=== PATIENT | female | born 1990 | race Hispanic/Latino ===

== ENCOUNTER 2023-03-29 08:51 | Outpatient (CLI) | payer OTHER, SELFPAY ==
[2023-03-29 20:46] LABS: Alanine Aminotransferase 26 U/L (6-35); Albumin Level 4.3 g/dL (3.5-5.1); Alkaline Phosphatase 84 U/L (38-126); Anion Gap 5 mmol/L (8-16); Aspartate Amino Transferase 78 U/L (14-36); Bilirubin,Total 0.5 mg/dL (0.2-1.3); Blood Urea Nitrogen 12 mg/dL (7-17); Calcium 8.9 mg/dL (8.4-10.2); Carbon Dioxide 34 mmol/L (22-30); Chloride 99 mmol/L (98-107); Cholesterol 193 mg/dL (0-200); Estimated Glomerular Filt Rate > 60; Glucose 111 mg/dL (65-110); HDL Direct 37 mg/dL; Sodium 138 mmol/L (137-145); Triglycerides 159 mg/dL (<150)
[2023-03-29 21:09] LABS: Creatinine Urine 123.2 mg/dL
[2023-03-29 21:10] LABS: MALB Creatinine Ratio 44.2 mg/g (0-30); Microalbumin Urine Random 54.5 mg/L (0-16.7)
[2023-03-29 22:02] LABS: LDL Cholesterol Direct 107 mg/dL
[2023-03-29 22:11] LABS: Vitamin D 25 Hydroxy 17.5 ng/mL
[2023-03-29 22:16] LABS: Hemoglobin A1C 7.8 % (<5.7)
== END 2023-03-29 08:52 | disposition home or self-care (01) ==
LOC: ANHBWCLAB 08:52
PROVIDERS: PCP Nurse Practitioner Adult Health; Visit Provider Nurse Practitioner Adult Health
DX: E11.9 Type 2 diabetes mellitus without complications (principal); E55.9 Vitamin D deficiency, unspecified
CPT/HCPCS: 36415; 80053; 80061; 82043; 82306; 83036

== ENCOUNTER 2023-06-28 08:02 | Outpatient (CLI) | payer OTHER, SELFPAY ==
[2023-06-28 19:00] LABS: Hematocrit 37.7 % (37.0-47.0); Mean Corpuscular HGB Conc 29.2 g/dl (32-36); Mean Corpuscular Hemoglobin 23.1 pg (26-34); Platelet Count Result 354 k/mm3 (150-375); Red Blood Count 4.77 M/mm3 (4.2-5.4); Red Cell Distribution Width 15.3 % (11.5-14.5); White Blood Count 13.3 K/mm3 (4.5-10.0)
[2023-06-28 19:53] LABS: Creatinine Urine 71.7 mg/dL
[2023-06-28 19:57] LABS: MALB Creatinine Ratio 21.2 mg/g (0-30); Microalbumin Urine Random 15.2 mg/L (0-16.7)
[2023-06-28 20:02] LABS: Alanine Aminotransferase 35 U/L (6-35); Albumin Level 4.1 g/dL (3.5-5.1); Alkaline Phosphatase 84 U/L (38-126); Anion Gap 7 mmol/L (8-16); Aspartate Amino Transferase 55 U/L (14-36); Bilirubin,Total 0.5 mg/dL (0.2-1.3); Blood Urea Nitrogen 12 mg/dL (7-17); Carbon Dioxide 31 mmol/L (22-30); Chloride 100 mmol/L (98-107); Cholesterol 196 mg/dL (0-200); Estimated Glomerular Filt Rate > 60; Glucose 137 mg/dL (65-110); HDL Direct 34 mg/dL; Potassium 4.4 mmol/L (3.4-5.0); Sodium 138 mmol/L (137-145); Triglycerides 115 mg/dL (<150)
[2023-06-28 20:13] LABS: LDL Cholesterol Direct 115 mg/dL
[2023-06-28 20:37] LABS: Vitamin D 25 Hydroxy 21.7 ng/mL
[2023-06-28 21:29] LABS: Hemoglobin A1C 7.1 % (<5.7)
== END 2023-06-28 08:03 | disposition home or self-care (01) ==
PROVIDERS: PCP Nurse Practitioner Adult Health; Visit Provider Nurse Practitioner Adult Health
DX: Z13.9 Encounter for screening, unspecified (principal); E11.9 Type 2 diabetes mellitus without complications; E55.9 Vitamin D deficiency, unspecified
CPT/HCPCS: 36415; 80053; 80061; 82043; 82306; 83036; 85027

== ENCOUNTER 2023-07-19 09:25 | Outpatient (CLI) | payer OTHER, SELFPAY ==
--- NOTE | ~2023-07-19 | XR_ITS ---
Right wrist Technique: PA and lateral views were obtained. Clinical History: Pain Findings: No acute fracture or dislocation is seen. Osseous alignment is anatomic. Joint spaces are p reserved. Soft tissues are unremarkable. Impression: Unremarkable right wrist radiographs. Reviewed, dictated and finalized at location M. Impression: Unremarkable right wrist radiographs.
--- NOTE | ~2023-07-19 | XR_ITS ---
Right Hand Technique: PA and lateral views were obtained. Clinical History: Pain Findings: No acute fracture or dislocation is seen. Osseous alignment is anatomic. Joint spaces are p reserved. Soft tissues are unremarkable. Impression: Unremarkable right hand. Reviewed, dictated and finalized at location M. Impression: Unremarkable right hand.
== END 2023-07-19 09:26 | disposition home or self-care (01) ==
LOC: ANHBWCIMG 09:26
PROVIDERS: PCP Nurse Practitioner Adult Health; Visit Provider Nurse Practitioner Adult Health
DX: M79.641 Pain in right hand (principal); M25.531 Pain in right wrist
CPT/HCPCS: 73100; 73120

== ENCOUNTER 2023-11-02 08:07 | Outpatient (CLI) | payer OTHER, SELFPAY ==
[2023-11-02 19:07] LABS: Hematocrit 40.4 % (37.0-47.0); Hemoglobin 11.5 g/dL (12.0-15.0); Mean Corpuscular HGB Conc 28.5 g/dl (32-36); Mean Corpuscular Hemoglobin 22.3 pg (26-34); Mean Corpuscular Volume 78.3 fl (80-100); Platelet Count Result 389 k/mm3 (150-375); Red Blood Count 5.16 M/mm3 (4.2-5.4); Red Cell Distribution Width 15.2 % (11.5-14.5); White Blood Count 13.2 K/mm3 (4.5-10.0)
[2023-11-02 19:33] LABS: Alanine Aminotransferase 23 U/L (6-35); Albumin Level 4.2 g/dL (3.5-5.1); Alkaline Phosphatase 97 U/L (38-126); Anion Gap 7 mmol/L (8-16); Aspartate Amino Transferase 32 U/L (14-36); Bilirubin,Total 0.5 mg/dL (0.2-1.3); Blood Urea Nitrogen 14 mg/dL (7-17); Calcium 9.3 mg/dL (8.4-10.2); Carbon Dioxide 31 mmol/L (22-30); Chloride 101 mmol/L (98-107); Cholesterol 201 mg/dL (0-200); Estimated Glomerular Filt Rate > 60; Glucose 132 mg/dL (65-110); HDL Direct 33 mg/dL; Potassium 4.1 mmol/L (3.4-5.0); Sodium 139 mmol/L (137-145); Triglycerides 122 mg/dL (<150)
[2023-11-02 19:44] LABS: LDL Cholesterol Direct 131 mg/dL
[2023-11-02 19:45] LABS: Vitamin D 25 Hydroxy 25.5 ng/mL
[2023-11-02 20:01] LABS: Thyroid Stimulating Hormone 0.832 uIU/mL (0.465-4.680)
[2023-11-02 20:03] LABS: Creatinine Urine 117.3 mg/dL
[2023-11-02 20:09] LABS: MALB Creatinine Ratio 34.9 mg/g (0-30); Microalbumin Urine Random 40.9 mg/L (0-16.7)
[2023-11-02 21:29] LABS: Hemoglobin A1C 7.3 % (<5.7)
== END 2023-11-02 08:08 | disposition home or self-care (01) ==
LOC: ANHBWCLAB 08:09
PROVIDERS: PCP Nurse Practitioner Adult Health; Visit Provider Nurse Practitioner Adult Health
DX: E11.9 Type 2 diabetes mellitus without complications (principal); E55.9 Vitamin D deficiency, unspecified; Z13.9 Encounter for screening, unspecified; Z01.84 Encounter for antibody response examination
CPT/HCPCS: 36415; 80053; 80061; 82043; 82306; 83036; 84443; 85027; 86735; 86765

== ENCOUNTER 2024-03-07 08:03 | Outpatient (CLI) | payer OTHER, SELFPAY ==
[2024-03-07 20:06] LABS: Basophils Absolute Auto 0.1 K/mm3 (0.0-0.1); Basophils Percent Auto 0.4 % (0.2-1.2); Eosinophils Absolute Auto 0.1 K/mm3 (0-0.3); Eosinophils Percent Auto 0.9 % (0-4.4); Hematocrit 39.1 % (37.0-47.0); Hemoglobin 11.3 g/dL (12.0-15.0); Immature Granulocyte Absolute 0.04 K/mm3 (0.00-0.031); Immature Granulocyte Percent A 0.3 % (0-0.5); Lymphocytes Absolute Auto 2.51 K/mm3 (0.9-3.2); Lymphocytes Percent Auto 19.9 % (18.3-44.2); Mean Corpuscular HGB Conc 28.9 g/dl (32-36); Mean Corpuscular Hemoglobin 22.7 pg (26-34); Mean Corpuscular Volume 78.7 fl (80-100); Mean Platelet Volume 12.3 fl (7.4-10.4); Monocytes Absolute Auto 0.6 K/mm3 (0.1-0.6); Monocytes Percent Auto 4.9 % (2.6-8.5); Neutrophils Absolute Auto 9.3 K/mm3 (1.3-6.7); Neutrophils Percent Auto 73.6 % (45.5-73.1); Platelet Count Result 331 k/mm3 (150-375); Red Blood Count 4.97 M/mm3 (4.2-5.4); Red Cell Distribution Width 16.1 % (11.5-14.5); White Blood Count 12.6 K/mm3 (4.5-10.0)
[2024-03-07 20:41] LABS: Anisocytosis 1+; Burr Cells 1+; Creatinine Urine 141.7 mg/dL; Platelet Estimate Adequate (Adequate); Schistocytes None Seen
[2024-03-07 20:44] LABS: Alanine Aminotransferase 19 U/L (6-35); Albumin Level 4.5 g/dL (3.5-5.1); Alkaline Phosphatase 81 U/L (38-126); Anion Gap 6 mmol/L (4-12); Aspartate Amino Transferase 40 U/L (14-36); Bilirubin,Total 0.5 mg/dL (0.2-1.3); Blood Urea Nitrogen 15 mg/dL (7-17); Calcium 9.2 mg/dL (8.4-10.2); Carbon Dioxide 27 mmol/L (22-30); Chloride 105 mmol/L (98-107); Cholesterol 186 mg/dL (0-200); Estimated Glomerular Filt Rate > 60; Glucose 145 mg/dL (65-110); HDL Direct 34 mg/dL; Potassium 4.3 mmol/L (3.4-5.0); Sodium 138 mmol/L (137-145); Triglycerides 130 mg/dL (<150)
[2024-03-07 20:46] LABS: MALB Creatinine Ratio 24.3 mg/g (0-30); Microalbumin Urine Random 34.4 mg/L (0-16.7)
[2024-03-07 20:49] LABS: Iron 38 ug/dL (37-170)
[2024-03-07 20:55] LABS: LDL Cholesterol Direct 116 mg/dL
[2024-03-07 21:17] LABS: Vitamin D 25 Hydroxy 17.7 ng/mL
[2024-03-07 21:48] LABS: Hemoglobin A1C 6.2 % (<5.7)
== END 2024-03-07 08:04 | disposition home or self-care (01) ==
LOC: ANHBWCLAB 08:05
PROVIDERS: PCP Nurse Practitioner Adult Health; Visit Provider Nurse Practitioner Adult Health
DX: D64.9 Anemia, unspecified (principal); E55.9 Vitamin D deficiency, unspecified; E11.9 Type 2 diabetes mellitus without complications
CPT/HCPCS: 36415; 80053; 80061; 82043; 82306; 82565; 82607; 82728; 83036; 83540; 85025

== ENCOUNTER 2024-03-20 14:10 | Outpatient (CLI) | payer OTHER, SELFPAY ==
[2024-03-20 16:40] LABS: IFOB Positive Control Positive; Immunochemical Fecal Occult Bl Negative (N)
== END 2024-03-20 14:11 | disposition home or self-care (01) ==
LOC: ANHLAB 14:12
PROVIDERS: PCP Nurse Practitioner Adult Health; Visit Provider Nurse Practitioner Adult Health
DX: D64.9 Anemia, unspecified (principal)
CPT/HCPCS: 82274

== ENCOUNTER 2024-03-21 10:52 | Outpatient (CLI) | payer OTHER, SELFPAY ==
[2024-03-21 11:21] LABS: Basophils Absolute Auto 0.1 K/mm3 (0.0-0.1); Basophils Percent Auto 0.5 % (0.2-1.2); Eosinophils Absolute Auto 0.1 K/mm3 (0-0.3); Hematocrit 36.9 % (37.0-47.0); Hemoglobin 11.4 g/dL (12.0-15.0); Immature Granulocyte Absolute 0.02 K/mm3 (0.00-0.031); Immature Granulocyte Percent A 0.2 % (0-0.5); Immature Reticulocyte Fraction 13.5 % (3.0-15.9); Lymphocytes Percent Auto 24.3 % (18.3-44.2); Mean Corpuscular HGB Conc 30.9 g/dl (32-36); Mean Corpuscular Hemoglobin 22.7 pg (26-34); Mean Corpuscular Volume 73.4 fl (80-100); Monocytes Absolute Auto 0.6 K/mm3 (0.1-0.6); Monocytes Percent Auto 5.7 % (2.6-8.5); Neutrophils Absolute Auto 7.3 K/mm3 (1.3-6.7); Neutrophils Percent Auto 68.3 % (45.5-73.1); Red Blood Count 5.03 M/mm3 (4.2-5.4); Reticulocyte Hemoglobin Conten 24.3 pg (28.2-36.6); Reticulocyte Percent 1.47 % (0.7-4.3); Reticulocytes Absolute 0.07 10^6/uL (0.02-0.10); White Blood Count 10.7 K/mm3 (4.5-10.0)
[2024-03-21 11:39] LABS: Immature Platelet Fraction Pct 11.2 % (0.9-11.2); Mean Platelet Volume 11.6 fl (7.4-10.4); Platelet Count Result 246 k/mm3 (150-375)
[2024-03-21 11:44] LABS: Platelet Estimate Adequate (Adequate); Schistocytes None Seen
[2024-03-21 11:45] LABS: Anisocytosis 1+; Hypochromasia 2+; Microcytosis 1+ (NORMAL); Ovalocytes 1+; Poikilocytosis 1+
[2024-03-21 12:25] LABS: Alanine Aminotransferase 18 U/L (6-35); Albumin Level 4.4 g/dL (3.5-5.1); Alkaline Phosphatase 80 U/L (38-126); Anion Gap 10 mmol/L (4-12); Aspartate Amino Transferase 22 U/L (14-36); Bilirubin,Total 0.6 mg/dL (0.2-1.3); Blood Urea Nitrogen 13 mg/dL (7-17); CRP 1.6 mg/dL (<1.0); Calcium 9.2 mg/dL (8.4-10.2); Carbon Dioxide 25 mmol/L (22-30); Chloride 105 mmol/L (98-107); Estimated Glomerular Filt Rate > 60; Glucose 156 mg/dL (65-110); Lactate Dehydrogenase 171 U/L (120-246); Sodium 140 mmol/L (137-145)
[2024-03-21 12:41] LABS: Erythrocyte Sedimentation Rate 12 mm/hr (0-20)
[2024-03-21 13:27] LABS: Folic Acid 7.5 ng/mL (2.76->20)
[2024-03-21 16:33] LABS: Iron 49 ug/dL (37-170)
[2024-03-21 16:50] LABS: Percent Iron Saturation 13 % (20-50)
[2024-03-26 09:28] LABS: Methylmalonic Acid 113 nmol/L (87-318)
[2024-03-28 17:18] LABS: Soluble Transferrin Receptor 2.52 mg/L (0.76-1.76)
== END 2024-03-21 10:53 | disposition home or self-care (01) ==
PROVIDERS: PCP Nurse Practitioner Adult Health; Visit Provider Nurse Practitioner Family
DX: D64.9 Anemia, unspecified (principal)
CPT/HCPCS: 36415; 80053; 82607; 82728; 82746; 83540; 83550; 83615; 83921; 84238; 85025; 85046; 85055; 85652; 86140

== ENCOUNTER 2024-06-12 07:51 | Outpatient (CLI) | payer OTHER, SELFPAY ==
[2024-06-12 21:25] LABS: Cholesterol 187 mg/dL (0-200); Estimated Glomerular Filt Rate > 60; HDL Direct 36 mg/dL; Triglycerides 112 mg/dL (<150)
[2024-06-12 21:36] LABS: LDL Cholesterol Direct 114 mg/dL
[2024-06-12 21:47] LABS: Microalbumin Urine Random 21.7 mg/L (0-16.7)
[2024-06-12 21:59] LABS: MALB Creatinine Ratio 19.7 mg/g (0-30)
[2024-06-12 22:20] LABS: Vitamin D 25 Hydroxy 31.5 ng/mL
[2024-06-12 22:36] LABS: Hemoglobin A1C 6.6 % (<5.7)
== END 2024-06-12 07:52 | disposition home or self-care (01) ==
LOC: ANHBWCLAB 07:54
PROVIDERS: PCP Nurse Practitioner Adult Health; Visit Provider Nurse Practitioner Adult Health
DX: E11.9 Type 2 diabetes mellitus without complications (principal); E55.9 Vitamin D deficiency, unspecified
CPT/HCPCS: 36415; 80061; 82043; 82306; 82565; 83036

== ENCOUNTER 2024-09-12 11:52 | Outpatient (CLI) | payer OTHER, SELFPAY ==
--- NOTE | ~2024-09-12 | XR_ITS ---
Right Shoulder Technique: AP and scapular Y views were obtained. Clinical History: Pain Findings: No fracture or dislocation is seen. Osseous alignment is anatomic. The glenohumeral and acr omioclavicular joint spaces are preserved. Soft tissues are unremarkable. Impression: Unremarkable right shoulder radiographs. Reviewed, dictated and finalized at [facility]. EY CHIEF Impression: Unremarkable right shoulder radiographs.
== END 2024-09-12 11:53 | disposition home or self-care (01) ==
LOC: ANHBWCIMG 11:54
PROVIDERS: PCP Nurse Practitioner Adult Health; Visit Provider Nurse Practitioner Adult Health
DX: M25.511 Pain in right shoulder (principal)
CPT/HCPCS: 73030

== ENCOUNTER 2024-12-11 07:35 | Outpatient (CLI) | payer OTHER, SELFPAY ==
--- OUTSIDE RECORDS SUMMARY | 2024-12-11 07:39 | XMS_ITS | Referral Summary ---
Author Organization [facility] Address [address] [place] [address] Care Team Providers Care Direct Support Professional Caregiver Name Role Phone Cary Peace MD Primary Care Provider Allergies No known active allergies Medications amoxicillin-cl avulanate (AUGMENTIN) 875-125 mg per tablet Take 1 tablet by mouth 2 (two) times a day 3 Active aspirin 81 mg enteric coated tablet daily 6 Active blood glucose diagnostic (OneTouch Ultra Test) strip 2 Active blood glucose diagnostic (True Metrix Glucose Test Strip) strip by in vitro route 6 Active blood glucose control, normal solution by in vitro route 6 Active docusate sodium (COLACE) 100 mg capsule Take 100 mg by mouth 2 (two) times a day 9 Active Trulicity 1.5 mg/0.5 mL pen injector INJECT 1.5MG SUBCUTANEOUSLY ONE TIME PER WEEK 3 Active ergocalciferol (VITAMIN D) 50,000 unit capsule ergocalciferol (vitamin D2) 1,250 mcg (50,000 unit) capsule 9 Active ergocalciferol (VITAMIN D) 50,000 unit capsule Take 50,000 Units by mouth once a week 3 Active folic acid (FOLVITE) 1 mg tablet Take 1 mg by mouth daily 6 Active glucagon 1 mg kit USE DIRECTED. 6 Active insulin glargine (BASAGLAR) 100 unit/mL (3 mL) pen for injection Basaglar NabeelPen U-100 Insulin 100 unit/mL (3 mL) subcutaneous Active insulin lispro (HumaLOG, ADMELOG) 100 unit/mL vial for injection Inject under the skin 3 Active insulin NPH (HumuLIN N, NovoLIN N) 100 unit/mL vial for injection Inject 54 Units under the skin 6 Active metFORMIN (GLUCOPHAGE) 1,000 mg tablet Take 1,000 mg by mouth 6 Active metFORMIN (GLUCOPHAGE) 500 mg tablet 2 times daily 6 Active pen needle, diabetic 32 gauge x 32 needle USE DIRECTED 6 Active pravastatin (PRAVACHOL) 20 mg tablet 2 Active raNITIdine (ZANTAC) 150 mg tablet Take 150 mg by mouth 2 (two) times a day 9 Active insulin syringe-needle U-100 1 mL 31 gauge x 1564 syringe Inject 5 times a day use as directed 7 Active benzonatate (TESSALON) 100 mg capsuleIndicat ions:Cough Take 1 capsule (100 mg total) by mouth 3 (three) times a day as needed for cough 21 capsule 3 Active predniSONE (DELTASONE) 10 mg tablet Take 5 tabs (50mg) daily for 2 days, then take 4 tabs (40mg) daily for 2 days. Continue to decrease by 1 tab (10mg) every 2 days until gone. 30 tablet 3 Active Active Problems Problem Noted Date Diagnosed Date Genetic anomalies of leukocytes 11/09/2021 Overview (12/29/2022): Last Assessment & Plan: Condition: stable Follow up in: three months Headache 11/09/2021 Overview (12/29/2022): Last Assessment & Plan: Condition: New, possibly related to medication changes Follow up in: if symptoms worsen or fail to improve with Primary Care Provider Morbid (severe) obesity due to excess calories 0 11/09/2021 Overview (12/29/2022): Last Assessment & Plan: Condition: stable Co-morbidities: N/A BMI > 40, Type 2 Diabetes and Hyperlipidemia Follow up in: three months Myopia, bilateral 11/09/2021 Overview (12/29/2022): Last Assessment & Plan: Condition: stable Follow up in: six months Regular astigmatism, bilateral 11/09/2021 Overview (12/29/2022): Last Assessment & Plan: Condition: stable Follow up in: six months Hyperlipidemia due to type 2 diabetes mellitus 1 11/09/2020 Overview (12/29/2022): Last Assessment & Plan: Condition: stable Discussed glucose control targets. Educated on: Lifestyle changes, Nutrition, Foot care and Medication compliance Follow up in: three months with PCP Essential (primary) hypertension 07/07/2020 Overview (12/29/2022): I10 - Cardiovascular - extra low Added by Interface Anemia affecting in third trimester Overview (12/29/2022): 11/07/18: Pt currently taking PO iron; last counts: 10.8/33.2/246 (11/03) Back pain affecting in second trimeste r 09/12/2018 Overview (12/29/2022): Plan: physical therapy, symptoms improved Chronic hypertension with superimposed preeclamp roland 06/05/2018 Overview (12/29/2022): 24 urine: unable to complete, random protein: 19mg (08/29); Protein/creatinine ratio: 168: 0.11 11/03/2018: CBC 10.8/33.2/246 CMP ALT 17, AST 11, total bili 0.3, creatinine 0.45 11/13/2018: H/H/P: 10.9/32.2/264 AST: 9 ALT: 11 creatinine: 0.45 bili: 0.3 24 hour urine : 2500ml urine collected, 325mg protein/24 hr 12/05/18 CBC 12.0/36.4/286 CMP ALT 16, AST 12, total bili 0.2, creatinine 0.4 Last Assessment & Plan: Stopped ASA on 12/02 Order for CBC/CMP today, recommended weekly until delivery Patient should continue to be seen weekly either by Corn Cutter Operator or MFM. Continue kick counts, twice daily Ongoing testing, to include weekly 10 point BPP and 2x week NST until delivery. Delivery initiation at 37 weeks for superimposed preeclampsia; close monitoring for severe features weekly encouraged. Strict pre eclampsia warnings Obesity affecting , antepartum 06/05/20 18 Overview (12/29/2022): Limit weight gain to 15 pound Type 2 diabetes mellitus affecting , an tepartum 06/05/2018 Overview (12/29/2022): Eye exam (performed shortly before ): unremarkable Baseline CMP, 24 urine: unable to complete, random protein: 19mg (08/29); Protein/creatinine ratio: 19/168: 0.11 Creatinine: 0.48, AST: 11, ALT: 10, bili: 0.3, TSH: 1.23 (08/29) Hemoglobin A1C: 5.7 (08/29), 5.7 (10/17) First-trimester anatomy survey: Unremarkable Second trimester anatomy survey: No malformations demonstrated echocardiogram: Unremarkable Last Assessment & Plan: Insulin: NPH 28 units in am and increase to 58 units at HS, rapid acting insulin 4units with breakfast and 8 unitsdinner, metformin 1000 milligrams b.i.d. Serial growth assessed 12/04, 3052g (69%), AC 94% Continue twice weekly nonstress tests Encouraged , discussed benefits to both mother and baby Vitamin D deficiency 05/21/2018 Overview (12/29/2022): Last Assessment & Plan: Condition: stable Follow up in: three months Surgical follow-up care 02/23/2017 06/08/2016 Immunizations Immunization Administration Dates Next Due Influenza, Trivalent, Preservative Free, Intramu scular 07/11/2013 Tdap 11/17/2016,06/06/2013 Social History Tobacco Use Types Packs/Day Years Used Date Smoking Tobacco: Never Comments Unknown Sex and Gender Information Value Date Recorded Sex Assigned at Not on file 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 Gender Identity Not on file Sexual Orientation Not on file Last Filed Vital Signs Vital Sign Reading Time Taken Comments Blood Pressure 126/80 12/29/2022 6:03 PM CDT Pulse 87 12/29/2022 6:03 PM CDT Temperature 36.9 C (98.5 F) 12/29/2022 6:03 PM CDT Respiratory Rate 20 12/29/2022 6:03 PM CDT Oxygen Saturation 98% 12/29/2022 6:03 PM CDT Inhaled Oxygen Concentration - - Weight 138.3 kg (305 lb) 12/29/2022 6:03 PM CDT Height 167.6 cm (5' 6 ) 12/29/2022 6:03 PM CDT Body Mass Index 49.23 12/29/2022 6:03 PM CDT Plan of Treatment Not on file Procedures Procedure Name Priority Date/Time Associated Diagnosis Comments HEMOGLOBIN A1C STAT 01/26/2017 7:14 PM CDT from Last 3 Months or Most Recently Relevant to Health Maintenance Results * Hemoglobin A1c (01/26/2017 7:14 PM CDT) Hgb A1C 5.7 4.0 - 6.0 % [facility] Estimated Average Glucose 117 mg/dL [facility] Comment: The ADA recommends reporting an estimated Average Glucose (eAG) with all Hemoglobin A1c results using the equation derived from a study of 507 normal and diabetic adults. Minority populations were underrepresented and children were not included. (Diabetes Care 31:7984-3183, 2008). The eAG is not equivalent to a fasting glucose. Blood specimen (specimen) 01/26/2017 7:14 PM CDT 01/26/2017 7:36 PM CDT Pavan Adams MD LAB BLOOD ORDERABLES Edited Result - Final [facility] Department [place] [address] from Last 3 Months or Most Recently Relevant to Health Maintenance Insurance [facility] [employer] Care Teams Direct Support Professional Caregiver Relationship Specialty [place] [address] [address] PCP - General 02/27/17
--- OUTSIDE RECORDS SUMMARY | 2024-12-11 07:39 | XMS_ITS | CONTINUITY OF CARE DOCUMENT ---
Author Name kerry payne Address Unknown Organization [facility] Address [address] [facility] [address] [place] [address] Phone [phone] Care Team Providers Care Dude Wrangler Name Role Phone Gonzalo Charles MD Unavailable [phone] INSURANCE PROVIDERS Payer name Policy type / Coverage type Saadia red green party [place] Medicaid [id number]
--- OUTSIDE RECORDS SUMMARY | 2024-12-11 07:39 | XMS_ITS | Clinical Summary ---
Author Organization [facility] Address [address] [place] [address] [place] [address] Care Team Providers Care Web Operations Specialist Name Role Phone Unavailable Primary Care Provider Unavailabl e Allergies No known active allergies Medications insulin glargine (Basaglar KwikPen U-100 Insulin) 100 unit/mL pen syringe Inject 20 Units by subcutaneous injection 2 times daily. Active ergocalciferol (VITAMIN D2) 50,000 unit capsule Take 50,000 Units by mouth every 7 days. Active tirzepatide (Mounjaro) 2.5 mg/0.5 mL Pen Injector Inject by subcutaneous injection every 7 days. Active Active Problems No known active problems Encounters Date Type Department Care Team Description 11/26/2024 External Device Data ST[facility] ABSTRACTION Provider, Abstract 11/05/2024 External Device Data ST[facility] ABSTRACTION Provider, Abstract 10/30/2024 External Device Data ST[facility] ABSTRACTION Provider, Abstract 10/29/2024 External Device Data ST[facility] ABSTRACTION Provider, Abstract from Last 3 Months Family History Medical History Relation Name Comments No Known Problems Brother 1 No Known Problems Brother 2 No Known Problems Child 1 No Known Problems Child 2 No Known Problems Child 3 No Known Problems Father Diabetes Mother Relation Name Status Comments Brother 1 Alive Brother 2 Alive Child 1 Alive Child 2 Alive Child 3 Alive Father Alive Mother Social History Tobacco Use Types Packs/Day Years Used Date Smoking Tobacco: Never Smokeless Tobacco: Never Alcohol Use Standard Drinks/Week Comments Never 0 (1 standard drink = 0.6 oz pur e alcohol) Comments Unknown Sex and Gender Information Value Date Recorded Sex Assigned at Not on file Legal Sex Female 3:48 PM CDT Gender Identity Not on file Sexual Orientation Not on file Last Filed Vital Signs Vital Sign Reading Time Taken Comments Blood Pressure 132/77 03/21/2024 10:14 AM CDT Pulse 86 03/21/2024 10:14 AM CDT Temperature 36.7 C (98 F) 03/21/2024 10:14 AM CDT Respiratory Rate 16 03/21/2024 10:14 AM CDT Oxygen Saturation 97% 03/21/2024 10:14 AM CDT Inhaled Oxygen Concentration - - Weight 134.7 kg (297 lb) 03/21/2024 10:14 AM CDT Height 167.6 cm (5' 6 ) 03/21/2024 10:14 AM CDT Body Mass Index 47.94 03/21/2024 10:14 AM CDT Plan of Treatment Upcoming Encounters Date Type Department Care Team (Late st Contact Info) Description 12/13/2024 12:15 PM KITCHEN HAND Office Visit [facility] Oncology and Hematology [facility] [address] [facility] [address] [place] [address] Dennis Jimenez MD [address] [facility] [address] [place] [address] Health Maintenance Due Date Last Done Comments DIABETES ANNUAL FOOT EXAM 2006 DIABETES ANNUAL RETINAL EXAM 2006 DIABETES MICROALBUMIN ANNUAL SCREEN 2006 LDL CHOLESTEROL ANNUAL 2006 HEPATITIS B VACCINES (1 of 3 - 19+ 3-dose series) 2007 DIABETES HBA1C Q 6 MONTHS 02/26/20192017, 01/26/2017 INFLUENZA VACCINE (#1) 2024 07/11/2013 Preventative Visit- Commercial 10/09/2024 07/28/2023, 07/19/2021 CERVICAL CANCER SCREENING 07/28/2026 07/28/2023 DTAP/TDAP/TD VACCINES (4 - T d or Tdap) 11/17/2026 11/17/2016, 10/09/2015, 06/06/2013 HPV VACCINES Aged Out No longer eligi ble based on patient's age to complete this topic Insurance [employer] [place]
--- OUTSIDE RECORDS SUMMARY | 2024-12-11 07:39 | XMS_ITS | Clinical Summary ---
Author Organization [facility] Address [address] [place] [address] Care Team Providers Care Teletypesetter Monitor Name Role Phone Cary Peace MD Primary [...] continue to be seen weekly either by Marine Plumber or MFM. 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 Gender Identity Not on file Sexual Orientation Not on file Obstetrics History Last Filed Vital Signs Vital Sign Reading [...] 12/29/2022 6:03 PM CDT Plan of Treatment Health Maintenance Due Date Last Done Comments Albumin Creatinine Ratio, Urine 1988 Cervical Cancer Screening 1988 Depression Screening 1988 Hepatitis C Screening 1988 eGFR 1988 Dilated Eye Exam 1988 Foot Exam 1988 Lipid Panel 1988 Varicella Vaccines (1 of 2 - 13+ 2-dose series) 2001 Hepatitis B Screening 2006 Regular Well Visit/Exam 18-64 2006 Pneumococcal vaccine <65 (1 of 2 - PCV) 2007 Hemoglobin A1C 07/28/2017 01/26/2017 Covid-19 Vaccine (4 - season) 2024 09/16/2021, 01/02/2021, 12/08/2020 Influenza Vaccine (#1) 2024 2, 09/07/2021, 07/07/2020, Additional history exists DTaP/Tdap/Td Vaccine (5 - Td or Tdap) 12/11/2028 12/11/2018, 11/17/2016, 10/09/2015, Additional history exists HPV Vaccines Aged Out No longer eligi ble based on patient's age to complete this topic Procedures Procedure Name Priority Date/Time Associated Diagnosis Comments HEMOGLOBIN A1C STAT 01/26/2017 7:14 PM CDT from Last 3 Months or Most Recently Relevant to Health Maintenance Results * Hemoglobin A1c (01/26/2017 7:14 PM CDT) Hgb A1C 5.7 4.0 - 6.0 % [facility] Estimated Average Glucose 117 mg/dL [facility] Comment: The ADA recommends reporting an estimated Average Glucose (eAG) with all Hemoglobin A1c results using the equation derived from a study of 507 normal and diabetic adults. Minority populations were underrepresented and children were not included. (Diabetes Care 31:5733-4465, 2008). The eAG is not equivalent to a fasting glucose. Blood specimen (specimen) 01/26/2017 7:14 PM CDT 01/26/2017 7:36 PM CDT us Pavan Adams MD LAB BLOOD ORDERABLES Edited Result - Final [facility] Department [place] [address] from Last 3 Months or Most Recently Relevant to Health Maintenance Insurance [facility] [employer] Care Teams Teletypesetter Monitor Relationship Specialty [place] [address] [address] PCP - General 02/27/17
--- OUTSIDE RECORDS SUMMARY | 2024-12-11 07:40 | XMS_ITS | Referral Summary ---
Author Organization [facility] Address [address] [facility] [place] [address] Care Team Providers Care Watch Case Polisher Name Role Phone Roxann Land APRN-LEESA Primary Care Provider + Source Comments [facility],non-owned Affiliates and Associated Physician Practices is amultiple site organization consisting of ambulatory clinics and hospital sitesin [place], [place], [place] and [place]. This disclosure is being madepursuant to the Care Everywhere program and may not contain all information available regarding this patient. Last updated 18.[facility] Allergies No known active allergies Medications * Be aware that medications may not be up to date on this document. Alwaysverify current medications with the patient. Medication Sig Dispensed Refills Start Date End Date Status Vit-Fe Fumarate-FA ( VITAMIN) 27-0.8 MGIndications:Pre gnancy Take 1 tablet by mouth Reasons: Active folic acid (FOLVITE) 1 MG tablet Take 1 mg by mouth once daily Active insulin NPH (HUMULIN N; NOVOLIN N) vial Inject 54 Units subcutaneously 28 units in am and 54 units at HS Active insulin lispro (HUMALOG) 100 UNIT/ML vial 4 units with breakfast and 8 units with dinner Pt taking amdelog Active metFORMIN (GLUCOPHAGE) 1000 MG tablet Take 1,000 mg by mouth 2 times daily with morning and evening meal Active docusate sodium (COLACE) 100 MG capsule Take 1 capsule by mouth 2 times daily 60 capsule 2 11/07/2018 Active raNITIdine (ZANTAC) 150 MG tablet Take 1 tablet by mouth 2 times daily 60 tablet 1 11/07/2018 Active Additional Information Patient not taking.Reported on 12/05/2018 Active Problems Problem Noted Date Diagnosed Date Anemia affecting in third trimester Overview (11/07/2018): 11/07/18: Pt currently taking PO iron; last counts: 10.8/33.2/246 (11/03) Back pain affecting in second trimeste r 09/12/2018 Overview (11/07/2018): Plan: physical therapy, symptoms improved History of section 08/22/2018 Overview (08/22/2018): Plans repeat section with BTL with Rubber Compounder Mixer, attempted in last and unsuccessful Type 2 diabetes mellitus affecting , an tepartum 06/05/2018 Overview (11/14/2018): Eye exam (performed shortly before ): unremarkable Baseline CMP, 24 urine: unable to complete, random protein: 19mg (08/29); Protein/creatinine ratio: 19/168: 0.11 Creatinine: 0.48, AST: 11, ALT: 10, bili: 0.3, TSH: 1.23 (08/29) Hemoglobin A1C: 5.7 (08/29), 5.7 (10/17) First-trimester anatomy survey: Unremarkable Second trimester anatomy survey: No malformations demonstrated echocardiogram: Unremarkable Assessment & Plan (12/05/2018 2:48 PM DERRICK HELPER): Insulin: NPH 28 units in am and increase to 58 units at HS, rapid acting insulin 4units with breakfast and 8 unitsdinner, metformin 1000 milligrams b.i.d. Serial growth assessed 12/04, 3052g (69%), AC 94% Continue twice weekly nonstress tests Encouraged , discussed benefits to both mother and baby Assessment & Plan (11/14/2018 8:02 PM DERRICK HELPER): Plan: Insulin: NPH b.i.d., rapid acting insulin with breakfast and dinner, metformin 1000 milligrams b.i.d. Serial growth, every 4 weeks Twice weekly nonstress test and weekly BPP until delivery Supervision of high-risk of yas keen igravida 06/05/2018 Overview (09/05/2018): 08/29/18: H/H/P: 10.9/32.6/295, MCV: 79.1 Obesity affecting , antepartum 06/05/20 18 Overview (06/06/2018): Limit weight gain to 15 pound Chronic hypertension with superimposed preeclamp roland 06/05/2018 Overview (12/07/2018): 24 urine: unable to complete, random protein: 19mg (08/29); Protein/creatinine ratio: 19/168: 0.11 11/03/2018: CBC 10.8/33.2/246 CMP ALT 17, AST 11, total bili 0.3, creatinine 0.45 11/13/2018: H/H/P: 10.9/32.2/264 AST: 9 ALT: 11 creatinine: 0.45 bili: 0.3 24 hour urine : 2500ml urine collected, 325mg protein/24 hr 12/05/18 CBC 12.0/36.4/286 CMP ALT 16, AST 12, total bili 0.2, creatinine 0.4 Assessment & Plan (12/05/2018 3:07 PM DERRICK HELPER): Stopped ASA on 12/02 Order for CBC/CMP today, recommended weekly until delivery Patient should continue to be seen weekly either by Rubber Compounder Mixer or MFM. Continue kick counts, twice daily Ongoing testing, to include weekly 10 point BPP and 2x week NST until delivery. Delivery initiation at 37 weeks for superimposed preeclampsia; close monitoring for severe features weekly encouraged. Strict pre eclampsia warnings Assessment & Plan (11/14/2018 8:01 PM DERRICK HELPER): Indicated by blood pressure at primary OB's office of 151/84 on 11/01 and 147/83 on 10/11; blood pressure in our office on 143/87 on 11/07 with presence of headache. Preeclampsia labs drawn 11/13, 24 hour urine elevated at 325mg of protein, compared to a random protein/creatinine at 22 weeks of 0.11. No severe features this time. Plan: Discontinue aspirin at 34 weeks Delivery initiation in the 37th week Weekly CBC/CMP Close monitoring for severe features Would benefit from and weight reduction Assessment & Plan (10/17/2018 4:46 PM DERRICK HELPER): Twice weekly nonstress tests starting at 32 weeks with weekly 10 point BPP Assessment & Plan (08/22/2018 10:03 AM DERRICK HELPER): Stopped methyldopa, blood pressures in the 120s/70s as of 08/22 Resolved Problems Problem Noted Date Diagnosed Date Resolved Date Mild pre-eclampsia in third trimester 11/14/2018 11/14/2018 Social History Tobacco Use Types Packs/Day Years Used Date Smoking Tobacco: Never Smokeless Tobacco: Never Alcohol Use Standard Drinks/Week Comments No 0 (1 standard drink = 0.6 oz pur e alcohol) Sex and Gender Information Value Date Recorded Sex Assigned at Female 03/09/2022 7:18 AM CDT Gender Identity Female 03/09/2022 7:18 AM CDT Sexual Orientation Straight 03/09/2022 7: 18 AM CDT Last Filed Vital Signs Vital Sign Reading Time Taken Comments Blood Pressure 140/82 12/05/2018 1:32 PM DERRICK HELPER Pulse 104 12/05/2018 1:32 PM DERRICK HELPER Temperature 36.9 C (98.4 F) 01/30/2018 11:36 AM CDT Respiratory Rate 16 01/30/2018 11:3 6 AM CDT Oxygen Saturation 99% 11/07/2018 10: 06 AM DERRICK HELPER Inhaled Oxygen Concentration - - Weight 142.7 kg (314 lb 9.6 oz) 12/05/2018 1:32 PM DERRICK HELPER Height 167.6 cm (5' 6 ) 08/22/2018 8:41 AM DERRICK HELPER Body Mass Index 50.78 08/22/2018 8:41 AM DERRICK HELPER Plan of Treatment Not on file Care Teams Watch Case Polisher Relationship Specialty Start Date End Date Roxann Land APRN-LEESA [address] [address] PCP - General Nurse Practitioner 06/06/18
--- OUTSIDE RECORDS SUMMARY | 2024-12-11 07:40 | XMS_ITS | Patient Health Summary ---
Author Organization [facility] Address [address] [place] [address] Care Team Providers Care Technical Healthcare Consultant Name Role Phone Roxann Land Primary Care Provider + Note from [facility],non-owned Affiliates and Associated Physician Practices is amultiple site organization consisting of ambulatory clinics and hospital sitesin [place], [place], [place] and [place]. This disclosure is being madepursuant to the Care Everywhere program and may not contain all information available regarding this patient. Last updated 18.[facility] Allergies No known active allergies Medications * Be aware that medications may not be up to date on this document. Alwaysverify current medications with the patient. * Vit-Fe Fumarate-FA ( VITAMIN) 27-0.8 MG Take 1 tablet by mouth Reasons: * folic acid (FOLVITE) 1 MG tablet Take 1 mg by mouth once daily * insulin NPH (HUMULIN N; NOVOLIN N) vial Inject 54 Units subcutaneously 28 units in am and 54 units at HS * insulin lispro (HUMALOG) 100 UNIT/ML vial 4 units with breakfast and 8 units with dinner Pt taking amdelog * metFORMIN (GLUCOPHAGE) 1000 MG tablet Take 1,000 mg by mouth 2 times daily with morning and evening meal * docusate sodium (COLACE) 100 MG capsule(Started 11/07/2018) Take 1 capsule by mouth 2 times daily 2 refills remaining * raNITIdine (ZANTAC) 150 MG tablet(Started 11/07/2018) Take 1 tablet by mouth 2 times daily 1 refill remaining Active Problems Problem Noted Date Diagnosed Date Anemia affecting in third trimester Back pain affecting in second trimeste r 09/12/2018 History of section 08/22/2018 Type 2 diabetes mellitus affecting , an tepartum 06/05/2018 Supervision of high-risk of young mulwil turkavida 06/05/2018 Obesity affecting , antepartum 06/05/20 18 Chronic hypertension with superimposed preeclamp roland 06/05/2018 Resolved Problems Problem Noted Date Diagnosed Date [...] Comments Blood Pressure 140/82 12/05/2018 1:32 PM ROLL TUBE SETTER Pulse 104 12/05/2018 1:32 PM ROLL TUBE SETTER Temperature 36.9 C (98.4 F) 01/30/2018 11:36 AM CDT Respiratory Rate 16 01/30/2018 11:3 6 AM CDT Oxygen Saturation 99% 11/07/2018 10: 06 AM ROLL TUBE SETTER Inhaled Oxygen Concentration - - Weight 142.7 kg (314 lb 9.6 oz) 12/05/2018 1:32 PM ROLL TUBE SETTER Height 167.6 cm (5' 6 ) 08/22/2018 8:41 AM ROLL TUBE SETTER Body Mass Index 50.78 08/22/2018 8:41 AM ROLL TUBE SETTER Procedures * BIOPHYSICAL PROFILE W NST(Performed 12/04/2018) Performed for Type 2 diabetes mellitus affecting , antepartum (HCC), Supervision of high-risk of young multigravida (HCC), Obesity affecting , antepartum (HCC), Chronic hypertension during , antepartum (HCC), History of section * BIOPHYSICAL PROFILE W NST(Performed 11/14/2018) Performed for Type 2 diabetes mellitus affecting , antepartum (HCC), Supervision of high-risk of young multigravida (HCC), Obesity affecting , antepartum (HCC), Chronic hypertension during , antepartum (HCC), History of section * PROTEIN CREATININE RATIO URINE TIMED PNL(Performed 11/13/2018) * CBC W/O DIFFERENTIAL(Performed 11/13/2018) * COMPREHENSIVE METABOLIC PANEL(Performed 11/13/2018) * CREATININE CLEARANCE URINE TIMED + BLOOD(Performed 11/13/2018) * BIOPHYSICAL PROFILE W NST(Performed 11/07/2018) Performed for Type 2 diabetes mellitus affecting , antepartum (HCC), Supervision of high-risk of young multigravida (HCC), Obesity affecting , antepartum (HCC), Chronic hypertension during , antepartum (HCC), History of section * SONOGRAM - COMPLETE(Performed 10/17/2018) Performed for Type 2 diabetes mellitus affecting , antepartum (HCC), Supervision of high-risk of young multigravida (HCC), Obesity affecting , antepartum (HCC), Chronic hypertension during , antepartum (HCC), History of section * ECHO CONSULT - (Performed 09/19/2018) Performed for Type 2 diabetes mellitus affecting , antepartum (HCC) * PROTEIN CREATININE RATIO URINE RANDOM PNL(Performed 08/29/2018) * HEMOGLOBIN A1C(Performed 08/29/2018) * TSH REFLEX FREE T4(Performed 08/29/2018) * CBC W AUTO DIFFERENTIAL(Performed 08/29/2018) * COMPREHENSIVE METABOLIC PANEL(Performed 08/29/2018) * SONOGRAM - COMPLETE(Performed 08/22/2018) Performed for Type 2 diabetes mellitus affecting , antepartum (HCC), Supervision of high-risk of young multigravida (HCC), Obesity affecting , antepartum (HCC), Chronic hypertension during , antepartum (HCC) * SONOGRAM - COMPLETE(Performed 07/25/2018) Performed for Encounter for anatomic survey (HCC), Encounter for ultrasound to assess interval growth of fetus (HCC), Type 2 diabetes mellitus affecting , antepartum (HCC), Supervisionof high-risk of young multigravida (HCC), Chronic hypertension during , antepartum (HCC) * SONOGRAM - COMPLETE(Performed 06/29/2018) Performed for Supervision of high-risk of young multigravida (HCC), Type 2 diabetes mellitus affecting , antepartum (HCC), Obesity affecting , antepartum (HCC), Chronic hypertension during , antepartum (HCC) * SONOGRAM - COMPLETE(Performed 06/06/2018) Performed for Type 2 diabetes mellitus affecting , antepartum (HCC), Supervision of high-risk of young multigravida (HCC), Obesity affecting , antepartum (HCC), Chronic hypertension during , antepartum (HCC) * STREP A SCREEN - POINT OF CARE (AMB) STL(Performed 01/30/2018) Performed for Acute streptococcal pharyngitis * STREP A SCREEN - POINT OF CARE (AMB) STL(Performed 12/30/2017) Performed for Acute streptococcal pharyngitis Results * BIOPHYSICAL PROFILE W NST (12/04/2018 1:29 PM ROLL TUBE SETTER) Only the most recent of3 resultswithin the time period is included. Anatomical Region Laterality Modality Other 12/04/2018 1:29 PM ROLL TUBE SETTER Narrative 12/04/2018 3:23 PM ROLL TUBE SETTER [facility] PHONE: FAX: Pat. Name: NIDIA VIEIRA Paulette. No: [id number] Study Date: 12/04/2018 1:29pm , Age: 08 1990, 28 Pregnancies: 3, Para 2 Height: 66 in Weight: 356 lb LMP: 03/25/2018 GA by LMP: 36w2d GA by Base: 36w2d GERALD: 12/30/2018 GA by US: 35w6d GERALD: 01/02/2019 GA Selected: 36w2d (From [facility]) GERALD: 12/30/2018 Referring MD: Iggy Tadeo MD Senior Caregiver: Jacqueline Calderón RDMS CPT4: 62422,43133 BMI: 57.45 Hist/Ind: Hx of 1st child with Anecephaly (ft delivery) Hx of C-Sect x 2 Diabetes mellitus, pre-existing Hypertension Morbid Obesity Growth COMPLETED Anatomic Screen MEASUREMENTS & AGE GROWTH EVALUATION Measurement GA Range Srce %for GA Ratios ----- ---- ------- BPD 8.3 cm 33w2d (38f5o-08q7u) Hadl BPD 2% FL/BPD 0.86 (0.71 - 0.87) HC 32.0 cm 36w1d (01s8a-43k4l) Hadl HC 19% FL/AC 0.21 (0.20 - 0.24) AC 34.1 cm 38w0d (20d6l-25j6z) Hadl AC 94% HC/AC 0.94 (0.92 - 1.11) FL 7.1 cm 36w3d (10a5a-37g7a) Hadl FL 50% CI 0.70 (0.70 - 0.86) HL 6.0 cm 34w4d (18b8n-74w8h) Thomas HL 22% GA for sonogram 35w6d (38k7u-87p2b) Weight Estimate: based on (BPD,HC,AC,FL) Hadlock Weight: 3052 gm (2606-3498gm) Had : 6lbs, 11oz Normal: 2868 gm (2151-3585gm) Had Wt% 69% for 36w2d Heart Rate: 130 bpm Amniotic Fluid Index: 18.4cm (07.6-24.8) Q1: 4.2cm Q2: 4.8cm Q3: 5.1cm Q4: 4.3cm Biophysical Profile: 07/18 Breathin Tone: 2 NST: 2 Movement: 2 AFV: 2 EVAL, PLACENTA Presentation: cephalic Placenta: anterior Heart Rate: 130 bpm Amniotic Fluid Volume: normal CLINICAL SUMMARY Study Number: 7 A single fetus is identified in cephalic presentation. The measurements today are consistent with appropriate growth compared to previous study. The GERALD selected is based on a prior ultrasound examination. The amniotic fluid volume is normal. The placenta is anterior. No major malformations are seen within the limitations of ultrasound examination. The patient was advised that ultrasound does not allow detection of all structural or chromosomal abnormalities. TESTING: The Biophysical profile score is 10/10. The NST is reactive without decelerations. Intermittently difficulty monitoring FHR, however, overall reassuring FHR tracing IMPRESSION: 1. Single, live, IUP at 36w2d 2. Appropriate size 3. normal amniotic fluid volume 4. anterior placenta 5. Reassuring testing 6. Examination significantly limited by maternal body habitus, positioning, and advanced gestationala ge RECOMMEND: Continue testing with weekly NSTs/BPPs. Assess growth every 3-4 weeks on ultrasound. Thank you for allowing us the opportunity to care for your patient. Rodney Jimenez MD <Electronic Signature> 12/04/2018 03:23pm R Lambert Tadeo MD [facility] ORDERABLES * (ABNORMAL) PROTEIN CREATININE RATIO URINE TIMED PNL (11/13/2018 1:17 PM ROLL TUBE SETTER) Pathologist [facility] Creatinine 24 Hour Urine 2.35(H) 0.50 - 2.15 g/24 h [facility] Protein 24 Hour Urine 138(H) < OR = 114 mg/g creat [facility] Protein 24 Hour Urine 325(H) <150 mg/24 h [facility] Comment: TOTAL URINE VOLUME: 2500/24 Test Performed at: [facility] [id number] [place] [phone] DEON COONEY DO,MPH 11/13/2018 1:17 PM ROLL TUBE SETTER 11/13/2018 1:19 PM ROLL TUBE SETTER Meron Geovany [facility] LAB - URINE MICHAEL BUD ORDERABLES Performing Organization Address [facility] Co de Phone Number [facility] [address] [place] [address] * (ABNORMAL) CBC W/O DIFFERENTIAL (11/13/2018 1:17 PM ROLL TUBE SETTER) Pathologist [facility] White Blood Cell Count 10.9(H) 3.8 - 10.8 Thousand/u L [facility] RBC 4.17 3.80 - 5.10 Million/uL [facility] Hemoglobin 10.9(L) 11.7 - 15.5 g/dL [facility] Hematocrit 32.2(L) 35.0 - 45.0 % [facility] MCV 77.2(L) 80.0 - 100.0 fL [facility] MCH 26.1(L) 27.0 - 33.0 pg [facility] MCHC 33.9 32.0 - 36.0 g/dL [facility] RDW 14.1 11.0 - 15.0 % [facility] Platelet Count 264 140 - 400 Thousand/u L [facility] MPV 13.0(H) 7.5 - 12.5 fL [facility] Comment: Test Performed at: [facility] [address] [place] [address] DEON COONEY DO,MPH 11/13/2018 1:17 PM ROLL TUBE SETTER 11/13/2018 1:19 PM ROLL TUBE SETTER Meron Geovany [facility] - HEMAT[facility] Y ORDERABLES Performing Organization Address [facility] Co de Phone Number [facility] [address] [place] [address] * (ABNORMAL) COMPREHENSIVE METABOLIC PANEL (11/13/2018 1:17 PM ROLL TUBE SETTER) Only the most recent of2 resultswithin the time period is included. Pathologist [facility] Glucose 161(H) 65 - 99 mg/dL [facility] Comment: Fasting reference interval For someone without known diabetes, a glucose value >125 mg/dL indicates that they may have diabetes and this should be confirmed with a follow-up test. BUN 7 7 - 25 mg/dL [facility] Creatinine 0.45(L) 0.50 - 1.10 mg/dL [facility] eGFR by MDRD 134 > OR = 60 mL/min/1.7 3m2 [facility] eGFR by MDRD 156 > OR = 60 mL/min/1.7 3m2 [facility] BUN/Creatinine Ratio 16 6 - 22 (calc) [facility] Sodium 139 135 - 146 mmol/L [facility] Potassium 3.8 3.5 - 5.3 mmol/L [facility] Chloride 104 98 - 110 mmol/L [facility] CO2 26 20 - 32 mmol/L [facility] Calcium 8.9 8.6 - 10.2 mg/dL [facility] Protein Total 6.4 6.1 - 8.1 g/dL [facility] Albumin 3.5(L) 3.6 - 5.1 g/dL [facility] Globulin Total 2.9 1.9 - 3.7 g/dL (calc) [facility] Albumin/Globulin Ratio 1.2 1.0 - 2.5 (calc) [facility] Bilirubin Total 0.3 0.2 - 1.2 mg/dL [facility] Alkaline Phosphatase 132(H) 33 - 115 U/L [facility] AST 9(L) 10 - 30 U/L [facility] ALT 11 6 - 29 U/L [facility] Comment: Test Performed at: [facility] [address] [place] [address] DEON COONEY DO,MPH 11/13/2018 1:17 PM ROLL TUBE SETTER 11/13/2018 1:19 PM ROLL TUBE SETTER Meron Armenta [employer] MACHINE SET UP OPERATOR-MEAT PROCESSING CENTER MANAGER LAB - CHEMISTRY ORDERABLES [facility] [address] [place] [address] * (ABNORMAL) CREATININE CLEARANCE URINE TIMED + BLOOD (11/13/2018 1:17 PM ROLL TUBE SETTER) Creatinine 0.45(L) 0.50 - 1.10 mg/dL [facility] eGFR by MDRD 134 > OR = 60 mL/min/1.7 3m2 [facility] eGFR by MDRD 156 > OR = 60 mL/min/1.7 3m2 [facility] Creatinine 24 Hour Urine 2.35(H) 0.50 - 2.15 g/24 h [facility] Body Surface Area 2.42 [facility] Creatinine Clearance 259(H) 75 - 115 mL/min [facility] Height Feet 5 ft [facility] Height Inches 6 in [facility] Weight Lbs 312 [facility] Comment: Test Performed at: [facility] [address] [place] [address] DEON COONEY DO,MPH 11/13/2018 1:17 PM ROLL TUBE SETTER 11/13/2018 1:19 PM ROLL TUBE SETTER Meron Armenta [employer] MACHINE SET UP OPERATOR-MEAT PROCESSING CENTER MANAGER LAB - URINE MICHAEL BUD ORDERABLES [facility] [address] [place] [address] * SONOGRAM - COMPLETE (10/17/2018 8:27 AM ROLL TUBE SETTER) Only the most recent of5 resultswithin the time period is included. Anatomical Region Laterality Modality Other 10/17/2018 8:27 AM ROLL TUBE SETTER Narrative 10/17/2018 12:25 PM ROLL TUBE SETTER [facility] PHONE: FAX: Pat. Name: NIDIA VIEIRA Pat. No: [id number] Study Date: 10/17/2018 8:27am , Age: 08 1990, 28 Pregnancies: 3, Para 2 Height: 66 in Weight: 356 lb LMP: 03/25/2018 GA by LMP: 29w3d GA by Base: 29w3d GERALD: 12/30/2018 GA by US: 29w0d GERALD: 01/02/2019 GA Selected: 29w3d (From [facility]) GERALD: 12/30/2018 Referring MD: Iggy Tadeo MD Senior Caregiver: Betsy Killian, ISIAH, RDCS CPT4: 82489 BMI: 57.45 Hist/Ind: Hx of 1st child with Anecephaly (ft delivery) Hx of C-Sect x 2 Diabetes mellitus, pre-existing Hypertension Morbid Obesity Growth COMPLETED Anatomic Screen MEASUREMENTS & AGE GROWTH EVALUATION Measurement GA Range Srce %for GA Ratios ----- ---- ------- BPD 7.0 cm 28w0d (91s9e-32q2s) Hadl BPD 7% FL/BPD 0.76 (0.71 - 0.87) HC 27.7 cm 30w2d (08u0k-51b1e) Hadl HC 42% FL/AC 0.20 (0.20 - 0.24* AC 26.4 cm 30w4d (82y1u-23r5w) Hadl AC 77% HC/AC 1.05 (0.98 - 1.17) FL 5.3 cm 28w1d (74n6z-98l7q) Hadl FL 8% CI 0.68 (0.70 - 0.86* GA for sonogram 29w0d (93o8o-64f1h) Weight Estimate: based on (HC,AC,FL) Hadlock Weight: 1442 gm (1229-1656gm) Had : 3lbs, 2oz Normal: 1451 gm (1088-1814gm) Had Wt% 49% for 29w3d Heart Rate: 138 bpm Amniotic Fluid Index: 18.2cm (09.1-23.2) Q1: 2.6cm Q2: 9.2cm Q3: 3.3cm Q4: 3.0cm EVAL, PLACENTA Presentation: cephalic Placenta: anterior Heart Rate: 138 bpm Amniotic Fluid Volume: normal Anatomy!Normal!Abnormal!Suboptimal!Comments Cranium ! x ! ! ! Stomach ! x ! ! ! CLINICAL SUMMARY Study Number: 5 A follow up exam was performed to re-evaluate growth. IMPRESSION: Single, live, IUP 29w3d Appropriate growth normal amniotic fluid RECOMMEND: Initiate weekly biophysical profile at 32 weeks, in conjunction with twice weekly nonstress tests Follow up ultrasound in 4 weeks for growth. Appointment has been made.. Thank you for the opportunity to participate in the care of your patient. Debra Marie MD <Electronic Signature> 10/17/2018 12:25pm Revised Debra Marie MD [facility] ORDERABLES * ECHO CONSULT - (09/19/2018 1:34 PM ROLL TUBE SETTER) 09/19/2018 1:34 PM ROLL TUBE SETTER Narrative Procedure Note Hilaria Martin MD - 09/20/[address] [place] [address] Fax Echocardiogram Report Pat.Name: ISHA NIDIA M Pat.ID: [id number] .Date: 09/19/2018 Refer.MD: Hilaria Martin Exam Time: 1:34:00 PM Study Type: Echo Age: 6 1990,28Y Sex: FEMALE Sonogrphr: RICHARD Hitchcock [facility]. Stat.:Outpatient CPT - 4: 75012, 31750, 08544, [address]239 Reason for Study:Diabetes Mellitus 2. Procedures: 2D Complete, Doppler Complete, Color Flow Visit ID: [id number] SUMMARY: Study Data: GA: 25/3 weeks. GERALD: 12/30/2018 . : 4. Para: 2. Type: Pettit. Lie: Transverse. Impression: The echocardiogram was within normal limits; however small atrial and ventricular septal defects and persistent ductus arteriosus cannot be excluded as findings. Findings: Anatomic Relationships: Left sided cardiac apex (levocardia). There is normal visceral-cardiac situs, and normal segmental cardiac anatomical relationship. Systemic Veins: There is normal systemic venous return. Pulmonary Veins: The visualized pulmonary veins drain normally to the left atrium. Right Atrium: The right atrial size is normal. Left Atrium: The left atrial size is normal. Atrial Septum: Patent foramen ovale is seen with the foramen flap bowing from right to left and color flow is right to left. Tricuspid Valve: The tricuspid valve is structurally normal. The inflow pattern is normal. Tricuspid velocity is within the normal range. There is no regurgitation present. Mitral Valve: The mitral valve is structurally normal. The inflow pattern is normal. Mitral velocity is within the normal range. There is no regurgitation present. Right Ventricle: The cavity size is normal. The wall thickness is normal. The systolic function is normal. RV Outflow Tract: The outflow tract is normal. Left Ventricle: The cavity size is normal. The wall thickness is normal. The systolic function is normal. LV Outflow Tract: The outflow tract is normal. Ventricular Septum: There is no defect with no shunting. Pulmonary Valve: Leaflets exhibited normal mobility. The transpulmonic velocity is within the normal range. There is no regurgitation present. Aortic Valve: Leaflets exhibited normal mobility. The transaortic velocity is within the normal range. There is no regurgitation present. Pulmonary Artery: The MPA is normal with confluent branch pulmonary arteries. Aorta: aortic arch visualized and is without obstruction by 2D, color flow and Doppler. Ductus Arteriosus: The antegrade flow velocity and pattern in the ductal arch is normal. A normal ductus arteriosus is appreciated. Hydrops Assessment: No pericardial effusion. No evidence of ascites or pleural effusion. Rhythm: The rhythm is normal. There is 1:1 AV conduction. Dopplers: Flow in the ductus venosus is normal. The umbilical vein flow pattern is normal. The umbilical artery flow pattern is normal. MEASUREMENTS: DOPPLER Mitral Valve MV pkE 0.2 m/s MV E/A 0.7 no unit MV pkA 0.3 m/s Tricuspid Valve TV pkE -0.2 m/s TV E/A 0.9 no unit TV pkA -0.3 m/s Aortic Valve AVpkVel -0.7 m/s Pulmonic Valve PV pkVel -0.6 m/s Heart Rate HR 151 bpm Signed 09/20/2018 01:58 PM Hilaria Martin MD Hilaria Martin MD ECHO ORDERABLES [facility] [address] [place] [address] * TSH REFLEX FREE T4 (08/29/2018 1:21 PM ROLL TUBE SETTER) Pathologist [facility] TSH with Reflex FT4 1.23 mIU/L [facility] Comment: Reference Range > or = 20 Years 0.40-4.50 Ranges First trimester 0.26-2.66 Second trimester 0.55-2.73 Third trimester 0.43-2.91 Test Performed at: [facility] [address] [place] [address] DEON COONEY DO,MPH 08/29/2018 1:21 PM ROLL TUBE SETTER 08/29/2018 1:22 PM ROLL TUBE SETTER Meron Geovany [facility] LAB - CHEMISTRY ORDERABLES Performing Organization Address [facility] de Phone Number [facility] [address] [place] [phone] * (ABNORMAL) HEMOGLOBIN A1C (08/29/2018 1:21 PM ROLL TUBE SETTER) [facility] Hemoglobin A1c 5.7(H) <5.7 % of total Hgb [facility] Comment: For someone without known diabetes, a hemoglobin A1c value between 5.7% and 6.4% is consistent with prediabetes and should be confirmed with a follow-up test. For someone with known diabetes, a value <7% indicates that their diabetes is well controlled. A1c targets should be individualized based on duration of diabetes, age, comorbid conditions, and other considerations. This assay result is consistent with an increased risk of diabetes. Currently, no consensus exists regarding use of hemoglobin A1c for diagnosis of diabetes for children. Test Performed at: [facility] [id number] [place] [address] DEON COONEY DO,MPH 08/29/2018 1:2 1 PM ROLL TUBE SETTER 08/29/2018 1:22 PM ROLL TUBE SETTER Meron Geovany [facility] LAB - CHEMISTRY ORDERABLES Performing Organization Address [facility] de Phone Number [facility] [address] [place] [address] * (ABNORMAL) CBC WITH DIFFERENTIAL (08/29/2018 1:21 PM ROLL TUBE SETTER) [facility] White Blood Cell Count 10.7 3.8 - 10.8 Thousand/u L [facility] RBC 4.12 3.80 - 5.10 Million/uL [facility] Hemoglobin 10.9(L) 11.7 - 15.5 g/dL [facility] Hematocrit 32.6(L) 35.0 - 45.0 % [facility] MCV 79.1(L) 80.0 - 100.0 fL [facility] MCH 26.5(L) 27.0 - 33.0 pg [facility] MCHC 33.4 32.0 - 36.0 g/dL [facility] RDW 15.3(H) 11.0 - 15.0 % [facility] Platelet Count 295 140 - 400 Thousand/u L [facility] MPV 12.5 7.5 - 12.5 fL [facility] Neutrophil Absolute 7950(H) 1500 - 7800 cells/uL [facility] Lymphocytes Absolute 2204 850 - 3900 cells/uL [facility] Absolute Monocytes 449 200 - 950 cells/uL [facility] Eosinophils Absolute 75 15 - 500 cells/uL [facility] Basophils Absolute 21 0 - 200 cells/uL [facility] Granulocytes % 74.3 % [facility] Lymphocytes % 20.6 % [facility] Monocytes % 4.2 % [facility] Eosinophils % 0.7 % [facility] Basophils % 0.2 % [facility] Comment: Test Performed at: [facility] [address] [place] [address] DEON COONEY DO,MPH 08/29/2018 1:21 PM ROLL TUBE SETTER 08/29/2018 1:22 PM ROLL TUBE SETTER Meron Armenta APRN-MEAT PROCESSING CENTER MANAGER LAB - HEMATOLOG Y ORDERABLES Performing Organization Address [facility] Co de Phone Number [facility] [address] [place] [address] * PROTEIN CREATININE RATIO URINE RANDOM PNL (08/29/2018 1:21 PM ROLL TUBE SETTER) Pathologist [facility] Creatinine Urine 168 20 - 275 mg/dL [facility] Protein/Creatini ne Ratio 113 21 - 161 mg/g creat [facility] Protein Random Urine 19 5 - 24 mg/dL [facility] Comment: Test Performed at: [facility] [address] [place] [address] DEON COONEY DO,MPH 08/29/2018 1:21 PM ROLL TUBE SETTER 08/29/2018 1:22 PM ROLL TUBE SETTER Meron Armenta APRN-MEAT PROCESSING CENTER MANAGER LAB - URINE MICHAEL BUD ORDERABLES Performing Organization Address [facility] Co de Phone Number [facility] [address] [place] [address] * (ABNORMAL) STREP A SCREEN (01/30/2018) Only the most recent of2 resultswithin the time period is included. Strep A Rapid POCT Positive(A) Negative Strep A Internal Control Present Lot # [id number] Expiration Date 06/29/2019 Throat ENTIRE THROAT (SURFACE REGION OF NECK) / Unknown 01/30/2018 Deirdre QUESADA LAB - POINT OF CARE ORDERABLES Care Teams Technical Healthcare Consultant Relationship Specialty Start Date End Date Roxann Land APRN-CNP [address] [address] PCP - General Nurse Practitioner 06/06/18
--- OUTSIDE RECORDS SUMMARY | 2024-12-11 07:40 | XMS_ITS | Clinical Summary ---
Author Organization [facility] Address [address] [place] [address] Care Team Providers Care Page Makeup System Operator Name Role Phone Roxann Land APRN-LEESA Primary Care Provider + Source Comments [facility],non-owned Affiliates and Associated Physician Practices is amultiple site organization consisting of ambulatory clinics and hospital sitesin [place], [place], [place]. This disclosure is being madepursuant to the Care Everywhere program and may not contain all information available regarding this patient. Last updated 18.[facility] Allergies No known active allergies Medications * [...] (08/22/2018): Plans repeat section with BTL with Barn Hand, attempted in last and unsuccessful Type 2 [...] Unremarkable Assessment & Plan (12/05/2018 2:48 PM LEAD JAVA SOFTWARE ENGINEER): Insulin: NPH 28 units in am and increase to 58 units at HS, rapid acting insulin 4units with breakfast and 8 unitsdinner, metformin 1000 milligrams b.i.d. Serial growth assessed 12/04, 3052g (69%), AC 94% Continue twice weekly nonstress tests Encouraged , discussed benefits to both mother and baby Assessment & Plan (11/14/2018 8:02 PM LEAD JAVA SOFTWARE ENGINEER): Plan: Insulin: NPH b.i.d., rapid acting insulin [...] 0.4 Assessment & Plan (12/05/2018 3:07 PM LEAD JAVA SOFTWARE ENGINEER): Stopped ASA on 12/02 Order for CBC/CMP today, recommended weekly until delivery Patient should continue to be seen weekly either by Barn Hand or MFM. Continue kick counts, twice daily Ongoing testing, to include weekly 10 point BPP and 2x week NST until delivery. Delivery initiation at 37 weeks for superimposed preeclampsia; close monitoring for severe features weekly encouraged. Strict pre eclampsia warnings Assessment & Plan (11/14/2018 8:01 PM LEAD JAVA SOFTWARE ENGINEER): Indicated by blood pressure at primary OB's [...] reduction Assessment & Plan (10/17/2018 4:46 PM LEAD JAVA SOFTWARE ENGINEER): Twice weekly nonstress tests starting at 32 weeks with weekly 10 point BPP Assessment & Plan (08/22/2018 10:03 AM LEAD JAVA SOFTWARE ENGINEER): Stopped methyldopa, blood pressures in the 120s/70s as of 08/22 Resolved Problems Problem Noted Date Diagnosed Date Resolved Date Mild pre-eclampsia in third trimester 11/14/2018 11/14/2018 Family History Medical History Relation Name Comments Diabetes - Type 2 Maternal Grandmother Diabetes - Type 2 Mother Hypertension Mother Relation Name Status Comments Maternal Grandmother heart d isease Mother Social History Tobacco Use Types Packs/Day [...] Comments Blood Pressure 140/82 12/05/2018 1:32 PM LEAD JAVA SOFTWARE ENGINEER Pulse 104 12/05/2018 1:32 PM LEAD JAVA SOFTWARE ENGINEER Temperature 36.9 C (98.4 F) 01/30/2018 11:36 AM CDT Respiratory Rate 16 01/30/2018 11:3 6 AM CDT Oxygen Saturation 99% 11/07/2018 10: 06 AM LEAD JAVA SOFTWARE ENGINEER Inhaled Oxygen Concentration - - Weight 142.7 kg (314 lb 9.6 oz) 12/05/2018 1:32 PM LEAD JAVA SOFTWARE ENGINEER Height 167.6 cm (5' 6 ) 08/22/2018 8:41 AM LEAD JAVA SOFTWARE ENGINEER Body Mass Index 50.78 08/22/2018 8:41 AM LEAD JAVA SOFTWARE ENGINEER Plan of Treatment Health Maintenance Due Date Last Done Comments PAP SMEAR 1988 HIV SCREENING 2003 HEPATITIS C SCREENING 05/29/2006 DTAP/TDAP/TD VACCINES (1 - Tdap) 2007 HEPATITIS B VACCINE (1 of 3 - 19+ 3-dose series) 2007 COVID-19 VACCINE (2023-2 5 season) 2024 INFLUENZA VACCINE (#1) 2024 08/17/2021 DEPRESSION SCREENING 10/09/2024 ZOSTER VACCINE (1 of 2) 2038 HIB VACCINE Aged Out No longer eligi ble based on patient's age to complete this topic HPV VACCINE Aged Out No longer eligi ble based on patient's age to complete this topic MENINGOCOCCAL (Group B) VACCINE Aged Out No longer eligible based on patient's age to complete this topic MENINGOCOCCAL VACCINE Aged Out No david adilia eligible based on patient's age to complete this topic PNEUMOCOCCAL VACCINE Aged Out No long er eligible based on patient's age to complete this topic Care Teams Page Makeup System Operator Relationship Specialty Start Date End Date Roxann Land APRN-LEESA [address] [address] PCP - General Nurse Practitioner 06/06/18
[2024-12-11 18:22] LABS: Basophils Absolute Auto 0.1 K/mm3 (0.0-0.1); Basophils Percent Auto 0.7 % (0.2-1.2); Eosinophils Absolute Auto 0.5 K/mm3 (0-0.3); Eosinophils Percent Auto 4.2 % (0-4.4); Hematocrit 39.7 % (37.0-47.0); Hemoglobin 12.4 g/dL (12.0-15.0); Immature Granulocyte Absolute 0.04 K/mm3 (0.00-0.031); Immature Granulocyte Percent A 0.4 % (0-0.5); Lymphocytes Absolute Auto 1.76 K/mm3 (0.9-3.2); Lymphocytes Percent Auto 16.6 % (18.3-44.2); Mean Corpuscular HGB Conc 31.2 g/dl (32-36); Mean Corpuscular Hemoglobin 25.7 pg (26-34); Mean Corpuscular Volume 82.4 fl (80-100); Mean Platelet Volume 12.3 fl (7.4-10.4); Monocytes Absolute Auto 0.7 K/mm3 (0.1-0.6); Monocytes Percent Auto 6.6 % (2.6-8.5); Neutrophils Absolute Auto 7.6 K/mm3 (1.3-6.7); Neutrophils Percent Auto 71.5 % (45.5-73.1); Platelet Count Result 313 k/mm3 (150-375); Red Blood Count 4.82 M/mm3 (4.2-5.4); Red Cell Distribution Width 14.8 % (11.5-14.5); White Blood Count 10.6 K/mm3 (4.5-10.0)
[2024-12-11 18:30] LABS: Iron 47 ug/dL (37-170)
[2024-12-11 18:35] LABS: Alanine Aminotransferase 21 U/L (6-35); Albumin Level 4.3 g/dL (3.5-5.1); Alkaline Phosphatase 86 U/L (38-126); Anion Gap 12 mmol/L (4-12); Aspartate Amino Transferase 37 U/L (14-36); Bilirubin,Total 0.5 mg/dL (0.2-1.3); Blood Urea Nitrogen 13 mg/dL (7-17); Calcium 9.4 mg/dL (8.4-10.2); Carbon Dioxide 27 mmol/L (22-30); Chloride 101 mmol/L (98-107); Cholesterol 171 mg/dL (0-200); Estimated Glomerular Filt Rate > 60; Glucose 108 mg/dL (65-110); HDL Direct 36 mg/dL; Potassium 4.1 mmol/L (3.4-5.0); Sodium 140 mmol/L (137-145); Triglycerides 73 mg/dL (<150)
[2024-12-11 18:46] LABS: LDL Cholesterol Direct 94 mg/dL; Percent Iron Saturation 13 % (20-50)
[2024-12-11 18:47] LABS: Vitamin D 25 Hydroxy 52.2 ng/mL
[2024-12-11 18:55] LABS: Microalbumin Urine Random 28.3 mg/L (0-16.7)
[2024-12-11 18:57] LABS: Creatinine Urine 167.6 mg/dL; MALB Creatinine Ratio 16.9 mg/g (0-30)
[2024-12-11 19:06] LABS: Hemoglobin A1C 5.6 % (<5.7)
[2024-12-11 19:39] LABS: Folic Acid 5.6 ng/mL (2.76->20)
== END 2024-12-11 07:36 | disposition home or self-care (01) ==
PROVIDERS: PCP Nurse Practitioner Adult Health
DX: D64.9 Anemia, unspecified (principal); E11.9 Type 2 diabetes mellitus without complications; E55.9 Vitamin D deficiency, unspecified
CPT/HCPCS: 36415; 80053; 80061; 82043; 82306; 82565; 82607; 82728; 82746; 83036; 83540; 83550; 85025

== ENCOUNTER 2025-06-17 07:50 | Outpatient (CLI) | payer OTHER, SELFPAY ==
--- OUTSIDE RECORDS SUMMARY | 2025-06-17 08:14 | XMS_ITS | Clinical Summary ---
Author Organization [facility] Address [address] [place] [address] Care Team Providers Care Radiology Teacher Name Role Phone Emery Roxann CONROY-EMS MANAGER Primary Care Provider + Source Comments [facility],non-owned Affiliates and Associated Physician Practices is amultiple site organization consisting of ambulatory clinics and hospital sitesin [place], [place], [place] and [place]. This disclosure is being madepursuant to the Care Everywhere program and may not contain all information available regarding this patient. Last updated 18.[facility] Allergies No known active allergies Medications * This document contains information received from the source organization and may not represent a complete record from that organization. * Be aware that medications may not be up to date on this document. Alwaysverify current medications with the patient. Vit-Fe Fumarate-FA ( VITAMIN) 27-0.8 MGIndications: Take 1 tablet by mouth Reasons: Active [...] mouth 2 times daily 60 capsule 2 9 Active raNITIdine (ZANTAC) 150 MG tablet Take 1 tablet by mouth 2 times daily 60 tablet 1 9 Active Additional Information Patient not taking.Reported on 12/05/2018 Active Problems Problem Noted Date Diagnosed Date Anemia affecting in third trimester Overview (11/07/2018): 11/07/18: Pt currently taking PO iron; last counts: 10.8/33.2/246 (11/03) Back pain affecting in second trimeste r 09/12/2018 Overview (11/07/2018): Plan: physical therapy, symptoms improved History of section 08/22/2018 Overview (08/22/2018): Plans repeat section with BTL with Decorating Consultant, attempted in last and unsuccessful Type 2 [...] Unremarkable Assessment & Plan (12/05/2018 2:48 PM MED SPA MANAGER): Insulin: NPH 28 units in am and increase to 58 units at HS, rapid acting insulin 4units with breakfast and 8 unitsdinner, metformin 1000 milligrams b.i.d. Serial growth assessed 12/04, 3052g (69%), AC 94% Continue twice weekly nonstress tests Encouraged , discussed benefits to both mother and baby Assessment & Plan (11/14/2018 8:02 PM MED SPA MANAGER): Plan: Insulin: NPH b.i.d., rapid acting insulin with breakfast and dinner, metformin 1000 milligrams b.i.d. Serial growth, every 4 weeks Twice weekly nonstress test and weekly BPP until delivery Supervision of high-risk of yas keen henrik 06/05/2018 Overview (09/05/2018): 08/29/18: H/H/P: 10.9/32.6/295, MCV: [...] 0.4 Assessment & Plan (12/05/2018 3:07 PM MED SPA MANAGER): Stopped ASA on 12/02 Order for CBC/CMP today, recommended weekly until delivery Patient should continue to be seen weekly either by Decorating Consultant or MFM. Continue kick counts, twice daily Ongoing testing, to include weekly 10 point BPP and 2x week NST until delivery. Delivery initiation at 37 weeks for superimposed preeclampsia; close monitoring for severe features weekly encouraged. Strict pre eclampsia warnings Assessment & Plan (11/14/2018 8:01 PM MED SPA MANAGER): Indicated by blood pressure at primary OB's [...] reduction Assessment & Plan (10/17/2018 4:46 PM MED SPA MANAGER): Twice weekly nonstress tests starting at 32 weeks with weekly 10 point BPP Assessment & Plan (08/22/2018 10:03 AM MED SPA MANAGER): Stopped methyldopa, blood pressures in the 120s/70s [...] = 0.6 oz pur e alcohol) Comments No Sex and Gender Information Value Date Recorded Sex Assigned at Female 03/09/2022 7:18 AM CDT Legal Sex Female 6:32 AM MED SPA MANAGER Gender Identity Female 03/09/2022 7:18 AM CDT Sexual Orientation Straight 03/09/2022 7: 18 AM CDT Last Filed Vital Signs Vital Sign Reading Time Taken Comments Blood Pressure 140/82 12/05/2018 1:32 PM MED SPA MANAGER Pulse 104 12/05/2018 1:32 PM MED SPA MANAGER Temperature 36.9 C (98.4 F) 01/30/2018 11:36 AM CDT Respiratory Rate 16 01/30/2018 11:3 6 AM CDT Oxygen Saturation 99% 11/07/2018 10: 06 AM MED SPA MANAGER Inhaled Oxygen Concentration - - Weight 142.7 kg (314 lb 9.6 oz) 12/05/2018 1:32 PM MED SPA MANAGER Height 167.6 cm (5' 6) 08/22/2018 8:41 AM MED SPA MANAGER Body Mass Index 50.78 08/22/2018 8:41 AM MED SPA MANAGER Plan of Treatment Health Maintenance Due Date Last Done Comments HIV SCREENING 2003 HEPATITIS C SCREENING 05/29/2006 DTAP/TDAP/TD VACCINES (1 - Tdap) 2007 HEPATITIS B VACCINE (1 of 3 - 19+ 3-dose series) 2007 PAP SMEAR 2009 HPV VACCINE (1 - 3-dose SCDM series) 2015 DEPRESSION SCREENING 10/09/2024 COVID-19 VACCINE (1 - 2023-2 5 season) 2025 INFLUENZA VACCINE (#1) 2025 08/17/2021 ZOSTER VACCINE (1 of 2) 2038 HIB VACCINE Aged Out No longer eligi ble based on patient's age to complete this topic MENINGOCOCCAL (Group B) VACC INE SHARED DECISION-MAKING Aged Out No longer eligibl e based on patient's age to complete this topic MENINGOCOCCAL GROUPS A/C/Y/W VACCINE Aged Out No longer eligible b ased on patient's age to complete this topic PNEUMOCOCCAL VACCINE Aged Out No long er eligible based on patient's age to complete this topic [place] [address] [place] [address] [facility] MEDICAID - OUT OF STATE * Guarantor: NIDIA VIEIRA Account Type Relation to Patient Date of Phone Billing Address Personal/Family [address] [place] [address] [facility] * Guarantor: NIDIA VIEIRA Account Type Relation to Patient Date of Phone Billing Address Personal/Family [address] [place] [address] [facility] * Guarantor: NIDIA VIEIRA Type Relation to Patient Date of Phone Billing Address Personal/Family [address] [place] [phone] [facility] Care Teams Radiology Teacher Relationship Specialty Start Date End Date Roxann Land APRN-LEESA [address] [address] PCP - General Nurse Practitioner 06/06/18
--- OUTSIDE RECORDS SUMMARY | 2025-06-17 08:14 | XMS_ITS | Clinical Summary ---
Author Organization [facility] Address [address] [place] [address] Care Team Providers Care Monument Stonecutter Name Role Phone Cary Peace MD Primary [...] continue to be seen weekly either by Show Host Or Hostess or MFM. Continue kick counts, twice daily [...] 11/17/2016,06/06/2013 Surgical History Surgery Date Site/Laterality Comments [place] DELIVERY ONLY Section Low Transverse - 2/2 Arrest of Dilation at 6cm, GDMA2 (Added by TW Conv) Social History Tobacco Use Types Packs/Day Years Used Date Smoking Tobacco: Never Comments Unknown Sex and Gender Information Value Date Recorded Sex Assigned at Not on file Legal Sex Female 5:54 AM SPRAY GUNNER Gender Identity Not on file Sexual Orientation [...] 6:03 PM CDT Height 167.6 cm (5' 6) 12/29/2022 6:03 PM CDT Body Mass Index [...] <65 (1 of 2 - PCV) 2007 HPV Vaccines (1 - 3-dose SCD M series) 2015 Hemoglobin A1C 02/26/2019 08/29/2018, 01/26/2017 Covid-19 Vaccine (4 - 2024-2 6 season) 2025 09/16/2021, 01/02/2021, 12/08/2020 Influenza Vaccine (#1) 2025 2, 09/07/2021, 07/07/2020, Additional history exists DTaP/Tdap/Td Vaccine (5 - Td or Tdap) 12/11/2028 12/11/2018, 11/17/2016, 10/09/2015, Additional history exists Procedures Procedure Name Priority Date/Time Associated Diagnosis Comments HEMOGLOBIN A1C STAT 01/26/2017 7:14 PM CDT from Last 3 Months or Most Recently Relevant to Health Maintenance Results * Hemoglobin A1c (01/26/2017 7:14 PM CDT) Hgb A1C 5.7 4.0 - 6.0 % [facility] Estimated Average Glucose 117 mg/dL [facility] Comment: The ADA recommends reporting an estimated Average Glucose (eAG) with all Hemoglobin A1c results using the equation derived from a study of 507 normal and diabetic adults. Minority populations were underrepresented and children were not included. (Diabetes Care 31:4244-4863, 2008). The eAG is not equivalent to a fasting glucose. Blood specimen (specimen) 01/26/2017 7:14 PM CDT 01/26/2017 7:36 PM CDT Pavan Adams MD LAB BLOOD ORDERABLES Edited Result - Final [facility] Department [place] [address] from Last 3 Months or Most Recently Relevant to Health Maintenance Insurance [facility] [employer] Care Teams Monument Stonecutter Relationship Specialty [place] [id number] [address] PCP - General 02/27/17
--- OUTSIDE RECORDS SUMMARY | 2025-06-17 08:14 | XMS_ITS | Clinical Summary ---
Author Organization [facility] Address [address] [place] [address] [place] [address] Care Team Providers Care Ice Rink Attendant Name Role Phone Unavailable Primary Care Provider [...] Encounters Date Type Department Care Team Description 05/27/2025 External Device Data STL ABSTRACTION Provider, Abstract 05/27/2025 External Device Data STL ABSTRACTION Provider, Abstract 05/13/2025 External Device Data STL ABSTRACTION Provider, Abstract 04/23/2025 External Device Data STL ABSTRACTION Provider, Abstract 04/22/2025 External Device Data STL ABSTRACTION Provider, Abstract 04/01/2025 External Device Data STL ABSTRACTION Provider, Abstract 03/25/2025 External Device Data STL ABSTRACTION Provider, Abstract [...] Date Smoking Tobacco: Never Smokeless Tobacco: Never Tobacco Cessation:Counseling Given: Not Answered Alcohol Use Standard Drinks/Week Comments Never 0 (1 standard drink = 0.6 oz pur e alcohol) Comments Unknown Sex and Gender Information Value Date Recorded Sex Assigned at Not on file Legal Sex Female 3:48 PM CDT Gender Identity Not on file Sexual Orientation Not on file Last Filed Vital Signs Vital Sign Reading Time Taken Comments Blood Pressure 137/83 12/13/2024 11:49 AM CLIENT TECHNICAL SPECIALIST Pulse 95 12/13/2024 11:46 AM CLIENT TECHNICAL SPECIALIST Temperature 36.1 C (97 F) 12/13/2024 11:46 AM CLIENT TECHNICAL SPECIALIST Respiratory Rate 17 12/13/2024 11:4 6 AM CLIENT TECHNICAL SPECIALIST Oxygen Saturation 97% 12/13/2024 11: 46 AM CLIENT TECHNICAL SPECIALIST Inhaled Oxygen Concentration - - Weight 122.6 kg (270 lb 3.2 oz) 025 11:46 AM CLIENT TECHNICAL SPECIALIST Height 167.6 cm (5' 6) 03/21/2024 10:1 4 AM CDT Body Mass Index 43.61 03/21/2024 10:14 AM CDT Plan of Treatment Upcoming Encounters Date Type Department Care Team (Late st Contact Info) Description 06/25/2025 11:45 AM CDT Office Visit [facility] Oncology and Hematology - [place] [address] [facility] [address] [place] [address] Dennis Jimenez MD [address] [facility] [address] [place] [address] Health Maintenance Due Date Last Done Comments DIABETES ANNUAL FOOT EXAM 2006 DIABETES ANNUAL RETINAL EXAM 2006 DIABETES MICROALBUMIN ANNUAL SCREEN 2006 LDL CHOLESTEROL ANNUAL 2006 HEPATITIS B VACCINES (1 of 3 - 19+ 3-dose series) 2007 HPV/Cotest (21-29) 2009 HPV VACCINES (1 - 3-dose SCDM series) 2015 HPV/Cotest (30-65) 2018 DIABETES HBA1C Q 6 MONTHS 02/26/2019 08/29/2018, INFLUENZA VACCINE (#1) 2025 07/11/2013 CERVICAL CANCER SCREENING 07/28/2026 PAP SMEAR 07/28/2026 07/28/2023 DTAP/TDAP/TD VACCINES (4 - T d or Tdap) 11/17/2026 11/17/2016, 10/09/2015, 06/06/2013 Insurance [employer] [id number]
[2025-06-17 18:30] LABS: Hematocrit 39.9 % (37.0-47.0); Hemoglobin 12.2 g/dL (12.0-15.0); Mean Corpuscular HGB Conc 30.6 g/dl (32-36); Mean Corpuscular Hemoglobin 25.8 pg (26-34); Mean Corpuscular Volume 84.4 fl (80-100); Platelet Count Result 284 k/mm3 (150-375); Red Blood Count 4.73 M/mm3 (4.2-5.4); White Blood Count 10.9 K/mm3 (4.5-10.0)
[2025-06-17 18:47] LABS: Alanine Aminotransferase 33 U/L (6-35); Albumin Level 4.3 g/dL (3.5-5.1); Alkaline Phosphatase 72 U/L (38-126); Anion Gap 9 mmol/L (4-12); Aspartate Amino Transferase 59 U/L (14-36); Bilirubin,Total 0.5 mg/dL (0.2-1.3); Blood Urea Nitrogen 13 mg/dL (7-17); Calcium 9.1 mg/dL (8.4-10.2); Carbon Dioxide 28 mmol/L (22-30); Chloride 101 mmol/L (98-107); Cholesterol 177 mg/dL (0-200); Estimated Glomerular Filt Rate > 60; Glucose 82 mg/dL (65-110); HDL Direct 39 mg/dL; Potassium 4.4 mmol/L (3.4-5.0); Sodium 138 mmol/L (137-145); Total Protein 8.0 g/dL (6.3-8.2); Triglycerides 84 mg/dL (<150)
[2025-06-17 19:06] LABS: MALB Creatinine Ratio 8.6 mg/g (0-30)
[2025-06-17 19:52] LABS: Hemoglobin A1C 5.0 % (<5.7)
== END 2025-06-17 07:51 | disposition home or self-care (01) ==
LOC: ANHBWCLAB 07:52
PROVIDERS: PCP Nurse Practitioner Adult Health; Visit Provider Nurse Practitioner Adult Health
DX: D64.9 Anemia, unspecified (principal); E11.9 Type 2 diabetes mellitus without complications
CPT/HCPCS: 36415; 80053; 80061; 82043; 82565; 83036; 85027